=== PATIENT | female | born 1960 | race Caucasian/White ===

== ENCOUNTER 2019-12-12 19:05 | Outpatient (CLI) | payer MEDICAID | END 2019-12-12 19:06 | disposition home or self-care (01) | LOC: COV 19:05 | PROVIDERS: ATTEND Family Medicine | DX: R50.9 Fever, unspecified (principal); R06.02 Shortness of breath; M79.10 Myalgia, unspecified site; R53.83 Other fatigue; R19.7 Diarrhea, unspecified; R09.81 Nasal congestion; R11.2 Nausea with vomiting, unspecified; Z20.828 Contact with and (suspected) exposure to other viral communicable diseases ==

== ENCOUNTER 2020-01-12 07:54 | Day surgery (SDC) | payer MEDICAID ==
[2020-01-12] MEDS ORDERED: MIDAZOLAM 2 MG/2 ML VIAL IVP ONE (07:55)
[2020-01-12] MEDS ORDERED: fentaNYL 250 MCG/5 ML VIAL IVP ONE (07:55)
[2020-01-12] MEDS ORDERED: LACTATED RINGERS 1,000 ML IV ONE (08:29)
[2020-01-12 10:36] VITALS: BP 129/82
== END 2020-01-12 07:55 | disposition home or self-care (01) ==
LOC: SDS 07:54
PROVIDERS: ATTEND Internal Medicine Gastroenterology
DX: Z12.11 Encounter for screening for malignant neoplasm of colon (principal); Z98.84 Bariatric surgery status
CPT/HCPCS: 45378; J3010; J7120

== ENCOUNTER 2020-02-17 12:50 | Outpatient (CLI) | payer MEDICAID | END 2020-02-17 23:59 | LOC: LAB.R 12:50 | PROVIDERS: ATTEND Physician Assistant | DX: N30.00 Acute cystitis without hematuria (principal) | CPT/HCPCS: 87077; 87086; 87181 ==

== ENCOUNTER 2020-02-26 07:00 | Outpatient (CLI) | payer MEDICAID ==
--- NOTE | 2020-02-26 18:03 | XRAY Report ---
PROCEDURE: Finger(s) LT INDICATIONS: LEFT MIDDLE FINGER PAIN TECHNIQUE: AP hand, 3 views of the third finger(s) acquired. COMPARISON: None FINDINGS: Bones: No fractures or dislocations, but there is a mild degree of interphalangeal degenerative oste oarthritis. No erosive arthritis or prior trauma is found.. No suspicious bony lesions. Soft tissues: No suspicious soft tissue calcifications. 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 Reviewed by: Joon Jarquin MD on 02/26/2020 6:01 PM PDT Approved by: Joon Jarquin MD on 02/26/2020 6:01 PM PDT Station ID: [id number]
== END 2020-02-26 23:59 | disposition home or self-care (01) ==
LOC: DI.S 07:00
PROVIDERS: ATTEND Physician Assistant Medical
DX: M19.042 Primary osteoarthritis, left hand (principal)

== ENCOUNTER 2020-04-14 08:54 | Outpatient (CLI) | payer MEDICAID ==
--- NOTE | 2020-04-14 15:49 | XRAY Report ---
PROCEDURE: Finger(s) LT INDICATIONS: LEFT MIDDLE FINGER PAIN TECHNIQUE: AP hand, 3 views of the third finger(s) acquired. COMPARISON: X-ray fingers 02/24/2020 FINDINGS: Bones: No fractures or dislocations. No suspicious bony lesions. Unchanged appearance of scattered IP degenerative changes with small associated periarticular osteophytes. Soft tissues: No suspicious soft tissue calcifications. IMPRESSION: Stable appearance of degenerative change. No visualized acute fracture or dislocation. However, occul t injury cannot be excluded. Recommend short interval imaging follow-up in 7-10 days as clinically in dicated for additional evaluation. Reviewed by: Janette Benton MD on 04/14/2020 3:47 PM PST Approved by: Janette Benton MD on 04/14/2020 3:47 PM PST Station ID: [id number]
== END 2020-04-14 23:59 | disposition home or self-care (01) ==
LOC: DI.WCP 08:54
PROVIDERS: ATTEND Nurse Practitioner Family
DX: M19.042 Primary osteoarthritis, left hand (principal)

== ENCOUNTER 2020-05-10 15:47 | Outpatient (CLI) | payer MEDICAID ==
[2020-05-10 18:39] LABS: BASOPHILS # (AUTO) 0.1 10^3/uL (0.0-0.1); EOSINOPHILS # (AUTO) 0.2 10^3/uL (0.0-0.7); EOSINOPHILS % (AUTO) 2.9 %; HGB - HEMOGLOBIN 12.5 g/dL (12.0-16.0); LYMPHOCYTES # (AUTO) 2.9 10^3/uL (1.5-3.5); LYMPHOCYTES % (AUTO) 35.1 %; MEAN CORPUSCULAR HEMOGLOBIN 28.7 pg (27.0-31.0); MEAN CORPUSCULAR HGB CONC 31.6 g/dL (32.0-36.0); MEAN CORPUSCULAR VOLUME 90.8 fL (81.0-99.0); MEAN PLATELET VOLUME 12.1 fL (7.9-10.8); MONOCYTES # (AUTO) 0.7 10^3/uL (0.0-1.0); MONOCYTES % (AUTO) 9.1 %; NEUTROPHILS # (AUTO) 4.2 10^3/uL (1.5-6.6); NEUTROPHILS % (AUTO) 51.7 %; PLT - PLATELET COUNT 328 10^3/uL (130-450); RED BLOOD COUNT 4.36 10^6/uL (4.20-5.40); RED CELL DISTRIBUTION WIDTH 14.9 % (12.0-15.0); WHITE BLOOD COUNT 8.2 x10^3/uL (4.8-10.8)
[2020-05-10 20:51] LABS: TRICHOMONAS VAGINALIS DNA NEGATIVE (NEGATIVE)
[2020-05-11 15:18] LABS: HIV AG/AB 4TH GEN NON-REACTIVE (NON-REACTIVE)
== END 2020-05-10 15:48 | disposition home or self-care (01) ==
LOC: LAB.WCP 15:47
PROVIDERS: ATTEND Family Medicine
DX: R53.83 Other fatigue (principal); Z11.3 Encounter for screening for infections with a predominantly sexual mode of transmission
CPT/HCPCS: 36415; 81599; 85025; 85651; 86140; 86592; 87389; 87491; 87591; 87661

== ENCOUNTER 2020-05-23 08:00 | Outpatient (CLI) | payer MEDICAID ==
[2020-05-23 16:39] LABS: BASOPHILS # (AUTO) 0.1 10^3/uL (0.0-0.1); BASOPHILS % (AUTO) 1.1 %; EOSINOPHILS # (AUTO) 0.1 10^3/uL (0.0-0.7); EOSINOPHILS % (AUTO) 1.5 %; HGB - HEMOGLOBIN 13.4 g/dL (12.0-16.0); LYMPHOCYTES # (AUTO) 2.5 10^3/uL (1.5-3.5); LYMPHOCYTES % (AUTO) 31.1 %; MEAN CORPUSCULAR HEMOGLOBIN 28.1 pg (27.0-31.0); MEAN CORPUSCULAR HGB CONC 31.5 g/dL (32.0-36.0); MEAN CORPUSCULAR VOLUME 89.3 fL (81.0-99.0); MEAN PLATELET VOLUME 11.7 fL (7.9-10.8); MONOCYTES # (AUTO) 0.7 10^3/uL (0.0-1.0); MONOCYTES % (AUTO) 8.3 %; NEUTROPHILS # (AUTO) 4.6 10^3/uL (1.5-6.6); NEUTROPHILS % (AUTO) 57.7 %; PLT - PLATELET COUNT 375 10^3/uL (130-450); RED BLOOD COUNT 4.77 10^6/uL (4.20-5.40)
[2020-05-23 16:47] LABS: ALBUMIN 4.2 g/dL (3.2-5.5); ALBUMIN/GLOBULIN RATIO 1.2 (1.0-2.2); BILIRUBIN,TOTAL 0.6 mg/dL (0.2-1.0); CREATININE 0.8 mg/dL (0.4-1.0); TOTAL PROTEIN 7.6 g/dL (6.7-8.2)
== END 2020-05-23 23:59 | disposition home or self-care (01) ==
LOC: LAB.WCP 08:00
PROVIDERS: ATTEND Family Medicine
DX: R53.83 Other fatigue (principal); R42 Dizziness and giddiness; Z20.822 Contact with and (suspected) exposure to COVID-19
CPT/HCPCS: 36415; 80053; 84443; 85025; 87275; 87276

== ENCOUNTER → 2020-10-25 | Outpatient (CLI) | payer MEDICAID ==
--- NOTE | 2020-10-25 15:16 | XRAY Report ---
PROCEDURE: Hip w/Pelvis 1V LT INDICATIONS: L HIP PX TECHNIQUE: AP pelvis with lateral view(s) of the left hip(s). COMPARISON: None. FINDINGS: Bones: No fractures or dislocations. Mild symmetric appearing bilateral hip joint osteoarthritic david nges are seen. No evidence of avascular necrosis of femoral head. Prominence of left femoral head nec k junction is seen which can be seen associated with cam type femoral acetabular impingement. Pelvic ring appears intact. No suspicious bony lesions. Soft tissues: The visualized bowel gas pattern is normal. No suspicious soft tissue calcifications. IMPRESSION: 1. Symmetric appearing mild bilateral hip joint osteoarthritis. No fracture or dislocation. No eviden ce of avascular necrosis. 2. Prominence of left femoral head neck junction which can be seen associated with cam type femoral a cetabular impingement. Reviewed by: Jared Wayne MD on 10/25/2020 3:14 PM PDT Approved by: Jared Wayne MD on 10/25/2020 3:14 PM PDT Station ID: [id number]
--- NOTE | 2020-10-25 16:46 | XRAY Report ---
PROCEDURE: Lumbar Spine 2 View INDICATIONS: LUMBAR BACK PX, WITH RADICULOPATHY TECHNIQUE: 2 views of the lumbar spine were acquired. COMPARISON: None. FINDINGS: Bones: 5 ubc-kke-ujhuwge vertebrae are present. There is mild grade 1 retrolisthesis of L2 on L3 an d L3 on L4. Mild multilevel disc space narrowing and endplate osteophyte formation. Facet hypertrophy throughout the mid and lower lumbar spine. No vertebral body compression fractures. No suspicious b jan lesions. Soft tissues: Overlying bowel gas pattern is normal. No suspicious soft tissue calcifications. IMPRESSION: Multilevel degenerative disc and facet disease. No acute fracture. No osseous lesion. If symptoms and/or clinical suspicion for pathology continue, further assessment with repeat plain film s, or advanced imaging (e.g., CT, MRI, or bone scan) is recommended for further assessment. Reviewed by: Zully Keyes MD on 10/25/2020 4:45 PM PDT Approved by: Zully Keyes MD on 10/25/2020 4:45 PM PDT Station ID: [id number]
== END ==
LOC: DI.N 14:17
PROVIDERS: ATTEND Family Medicine
DX: M51.17 Intervertebral disc disorders with radiculopathy, lumbosacral region (principal); M25.552 Pain in left hip; M16.0 Bilateral primary osteoarthritis of hip

== ENCOUNTER 2020-12-02 08:00 | Outpatient (CLI) | payer MEDICAID ==
--- NOTE | 2020-12-02 16:44 | XRAY Report ---
PROCEDURE: Knee 3 View RT INDICATIONS: STRAIN OF MUSCLES OR TENDONS AT LOWER LEG LEVEL, RIGHT TECHNIQUE: 3 views of the right knee(s) were acquired. COMPARISON: None. FINDINGS: Bones: No fractures or dislocations. No suspicious bony lesions. Soft tissues: No joint effusion. No suspicious soft tissue calcifications. IMPRESSION: No evidence acute bony abnormality of the right knee. If clinical suspicion and/or symptoms persist, further assessment with repeat plain films or advanced imaging (e.g., CT, MRI, or bone scan) may be helpful for further assessment. Reviewed by: Neo Cummings MD on 12/02/2020 4:42 PM PDT Approved by: Neo Cummings MD on 12/02/2020 4:42 PM PDT Station ID: [id number]
== END 2020-12-02 08:01 | disposition home or self-care (01) ==
LOC: DI.N 08:00
PROVIDERS: ATTEND Nurse Practitioner
DX: S86.911A Strain of unspecified muscle(s) and tendon(s) at lower leg level, right leg, initial encounter (principal)

== ENCOUNTER 2021-01-24 15:19 | Emergency (ER) | payer MEDICAID ==
--- NOTE | 2021-01-24 16:00 | XRAY Report ---
PROCEDURE: Chest 1 View X-Ray INDICATIONS: Chest pain TECHNIQUE: One view of the chest was acquired. COMPARISON: None FINDINGS: Surgical changes and devices: None. Lungs and pleura: No pleural effusions or pneumothorax. Scattered calcified granulomas are incidenta lly noted. Mediastinum: Mediastinal contours appear normal. Heart size is normal. Bones and chest wall: No suspicious bony lesions. Overlying soft tissues appear unremarkable. IMPRESSION: No acute pulmonary process. Reviewed by: Janette Benton MD on 01/24/2021 3:58 PM PDT Approved by: Janette Benton MD on 01/24/2021 3:58 PM PDT Station ID: [id number]
--- NOTE | 2021-01-24 16:00 | ED Physician Documentation ---
PD HPI CHEST PAIN - Stated complaint Stated Complaint: HEAVY CHEST,HEADACHE,DIZZY - Chief complaint Chief Complaint: Cardiac - History obtained from History obtained from: Patient - Additional information Additional information: 60-year-old woman who has had 3 "heart attacks". Per her description on every angiography she always had clean coronaries and has no stents in place. She was told they were "stress-induced." So I presume Takotsubo's cardiomyopathy although she is not familiar with that term. Previous angiograms were all in [place]. She was lost to follow-up and is not on any current cardiac medications. She has had substernal chest heaviness radiating to both shoulders since 230 this morning that is not exertional. Is associated with very mild nausea and shortness of breath. Denies pedal edema or calf pain. No recent travel. She also states that she was supposed be on blood pressure medications but had trouble managing her blood pressure and would start to pass out when she was on blood pressure medicine because of erratic absorption due to previous Gerardo-en-Y gastric bypass. Review of Systems Ten Systems: 10 systems reviewed and negative Constitutional: reports: Reviewed and negative Nose: reports: Reviewed and negative Throat: reports: Reviewed and negative Cardiac: reports: Chest pain / pressure. denies: Palpitations, Pedal edema, Calf pain PD PAST MEDICAL HISTORY - Past Medical History Cardiovascular: [place] Respiratory: None Endocrine/Autoimmune: None GI: Ulcers, Pancreatitis, Other : Kidney stones HEENT: Chronic hearing loss Psych: Depression, Anxiety, Post traumatic stress disorder Musculoskeletal: Fibromyalgia, Rheumatoid arthritis Derm: None - Past Surgical History General: Cholecystectomy, Appendectomy, Gastric surgery /CHEF FRENCH: Hysterectomy, Other - Present Medications Home Medications: Ambulatory Orders Medication Instructions Recorded Confirmed Duloxetine HCl [Cymbalta] 2 tab ORAL DAILY 01/12/20 01/12/20 Estradiol [Estrace] 1 applic VG 01/12/20 Pantoprazole Sodium [Protonix] 1 tab ORAL DAILY 01/12/20 01/12/20 - Allergies Allergies/Adverse Reactions: Allergies Allergy/AdvReac Type Severity Reaction Status Date / Time codeine Allergy Unknown Verified 01/24/21 15:41 hydromorphone [From Dilaudid] Allergy Unknown Verified 01/24/21 15:41 ketorolac [From Toradol] Allergy Unknown Verified 01/24/21 15:41 latex Allergy Unknown Verified 01/24/21 15:41 NSAIDS (Non-Steroidal Allergy Unknown Verified 01/24/21 15:41 Anti-Inflamma Sulfa (Sulfonamide Allergy Unknown Verified 01/24/21 15:41 Antibiotics) PD ED PE NORMAL - Vitals Vital signs reviewed: Yes - General General: Alert and oriented X 3, No acute distress - HEENT HEENT: PERRL, EOMI - Neck Neck: Supple, no meningeal sign, No bony TTP - Cardiac Cardiac: RRR, No murmur - Respiratory Respiratory: No respiratory distress, Clear bilaterally - Abdomen Abdomen: Normal bowel sounds, Soft, Non tender - Back Back: No CVA TTP, No spinal TTP - Derm Derm: Normal color, Warm and dry - Extremities Extremities: No edema, No calf tenderness / cord - Neuro Neuro: Alert and oriented X 3, Normal speech Results - Vitals Vitals: Vital Signs - 24 hr 01/24/21 01/24/21 01/24/21 15:26 15:40 16:10 Temperature 36.5 C 36.5 C Heart Rate 71 71 62 Respiratory 16 16 12 Rate Blood Pressure 149/96 H 149/96 H 152/95 H O2 Saturation 98 98 99 Oxygen O2 Source Room air - EKG (time done) 1528 Rate: Rate (enter#) (66) Rhythm: NSR [place]: Normal Intervals: Normal MD QRS: Normal Ischemia: Normal ST segments - Labs Labs: Laboratory Tests 01/24/21 01/24/21 01/24/21 16:00 16:00 16:00 WBC 6.6 RBC 4.64 Hgb 12.7 Hct 40.6 MCV 87.5 MCH 27.4 MCHC 31.3 L RDW 15.2 H Plt Count 318 MPV 11.5 H Neut # (Auto) 3.6 Lymph # (Auto) 2.1 [place] # (Auto) 0.6 Eos # (Auto) 0.2 Baso # (Auto) 0.1 Absolute Nucleated RBC 0.00 Nucleated RBC % 0.0 Sodium 136 Potassium 3.9 Chloride 98 L Carbon Dioxide 29 Anion Gap 9.0 BUN 12 Creatinine 0.8 Estimated GFR (MDRD) 74 L Glucose 104 H Calcium 8.6 Total Bilirubin 0.9 AST 24 ALT 17 Alkaline Phosphatase 80 Troponin I High Sens 4.3 Total Protein 7.0 Albumin 3.9 Globulin 3.1 Albumin/Globulin Ratio 1.3 Lipase 30 - Rads (name of study) 1v cxr Radiology: EMP read contemporaneously (NAD) PD MEDICAL DECISION MAKING - ED course ED course: Aspirin held here as she had 2 full size aspirin this morning at home. 60-year-old woman presents with chest pain, she has been in pain for over 12 hours with negative biomarkers and EKG. In addition to previously cane coronary arteries I think this is a very good prognostic indicator. On reexamination at 4:45 PM she was actually more distressed by her moderate headache which is not the worst of her life nor sudden onset and would like something for anxiety for that. Noting that she cannot take NSAIDs due to previous Gerardo-en-Y gastric bypass. Nothing in the history or physical or chest x-ray or work-up to suggest PE or dissection. Departure - Departure Disposition: 01 Home, Self Care Clinical Impression: Chest pain Headache Qualifiers: Headache type: tension-type Headache chronicity pattern: acute headache Intractability: not intractable Qualified Code(s): G44.209 - Tension-type headache, unspecified, not intractable Condition: Good Record reviewed to determine appropriate education?: Yes Instructions: ED Chest Pain NonCardiac Comments: Return if you worsen or if the chest pain changes. Otherwise follow-up with your primary care physician and discuss stress testing and ongoing medical management of previous episodes of what sounds like Takotsubo's cardiomyopathy.
[2021-01-24 16:14] LABS: BASOPHILS # (AUTO) 0.1 10^3/uL (0.0-0.1); BASOPHILS % (AUTO) 1.1 %; EOSINOPHILS # (AUTO) 0.2 10^3/uL (0.0-0.7); EOSINOPHILS % (AUTO) 3.3 %; HCT - HEMATOCRIT 40.6 % (37.0-47.0); HGB - HEMOGLOBIN 12.7 g/dL (12.0-16.0); LYMPHOCYTES # (AUTO) 2.1 10^3/uL (1.5-3.5); LYMPHOCYTES % (AUTO) 31.8 %; MEAN CORPUSCULAR HEMOGLOBIN 27.4 pg (27.0-31.0); MEAN CORPUSCULAR HGB CONC 31.3 g/dL (32.0-36.0); MEAN CORPUSCULAR VOLUME 87.5 fL (81.0-99.0); MEAN PLATELET VOLUME 11.5 fL (7.9-10.8); MONOCYTES # (AUTO) 0.6 10^3/uL (0.0-1.0); MONOCYTES % (AUTO) 8.9 %; NEUTROPHILS # (AUTO) 3.6 10^3/uL (1.5-6.6); NEUTROPHILS % (AUTO) 54.7 %; PLT - PLATELET COUNT 318 10^3/uL (130-450); RED BLOOD COUNT 4.64 10^6/uL (4.20-5.40); RED CELL DISTRIBUTION WIDTH 15.2 % (12.0-15.0); WHITE BLOOD COUNT 6.6 x10^3/uL (4.8-10.8)
[2021-01-24 16:28] LABS: ALBUMIN 3.9 g/dL (3.2-5.5); ALBUMIN/GLOBULIN RATIO 1.3 (1.0-2.2); BILIRUBIN,TOTAL 0.9 mg/dL (0.2-1.0); CALCIUM 8.6 mg/dL (8.5-10.3); CREATININE 0.8 mg/dL (0.4-1.0); POTASSIUM 3.9 mmol/L (3.5-5.0)
[2021-01-24] MEDS ORDERED: LORazepam 2 MG/ML VIAL IVP STA (16:45)
[2021-01-24] MEDS ORDERED: ACETAMINOPHEN 325 MG TABLET PO STA (16:45)
[2021-01-24 18:16] VITALS: BP 166/73
== END 2021-01-24 17:20 | disposition home or self-care (01) ==
LOC: ED 15:19
DX: R07.89 Other chest pain (principal); G44.209 Tension-type headache, unspecified, not intractable; F41.9 Anxiety disorder, unspecified; Z88.8 Allergy status to other drugs, medicaments and biological substances; I25.2 Old myocardial infarction; Z98.84 Bariatric surgery status
CPT/HCPCS: 36415; 71045; 80053; 83690; 84484; 85025; 93005; 96374; 99284; A9270; J2060

== ENCOUNTER 2021-02-14 11:00 | Outpatient (CLI) | payer MEDICAID ==
[2021-02-14 18:18] LABS: BASOPHILS # (AUTO) 0.1 10^3/uL (0.0-0.1); BASOPHILS % (AUTO) 1.3 %; EOSINOPHILS # (AUTO) 0.3 10^3/uL (0.0-0.7); EOSINOPHILS % (AUTO) 3.9 %; HCT - HEMATOCRIT 39.1 % (37.0-47.0); HGB - HEMOGLOBIN 11.8 g/dL (12.0-16.0); LYMPHOCYTES # (AUTO) 2.2 10^3/uL (1.5-3.5); LYMPHOCYTES % (AUTO) 32.1 %; MEAN CORPUSCULAR HEMOGLOBIN 26.7 pg (27.0-31.0); MEAN CORPUSCULAR HGB CONC 30.2 g/dL (32.0-36.0); MEAN CORPUSCULAR VOLUME 88.5 fL (81.0-99.0); MEAN PLATELET VOLUME 12.3 fL (7.9-10.8); MONOCYTES # (AUTO) 0.6 10^3/uL (0.0-1.0); MONOCYTES % (AUTO) 8.9 %; NEUTROPHILS # (AUTO) 3.7 10^3/uL (1.5-6.6); NEUTROPHILS % (AUTO) 53.5 %; PLT - PLATELET COUNT 328 10^3/uL (130-450); RED BLOOD COUNT 4.42 10^6/uL (4.20-5.40); RED CELL DISTRIBUTION WIDTH 15.2 % (12.0-15.0); WHITE BLOOD COUNT 6.9 x10^3/uL (4.8-10.8)
[2021-02-14 18:48] LABS: % IRON SATURATION 11 % (20-50); ALBUMIN 3.8 g/dL (3.2-5.5); ALBUMIN/GLOBULIN RATIO 1.2 (1.0-2.2); ALKALINE PHOSPHATASE 86 IU/L (42-121); ALT ALANINE AMINOTRANSFERASE 20 IU/L (10-60); AST ASPARTATE AMINOTRANSFERASE 23 IU/L (10-42); BILIRUBIN,TOTAL 0.4 mg/dL (0.2-1.0); BUN - BLOOD UREA NITROGEN 12 mg/dL (6-20); CALCIUM 8.7 mg/dL (8.5-10.3); CARBON DIOXIDE - CO2 29 mmol/L (21-32); CHLORIDE 102 mmol/L (101-111); CHOL/HDL RATIO 2.6 (<4.4); CHOLESTEROL 169 mg/dL; CREATININE 0.9 mg/dL (0.4-1.0); GFR - MDRD 64 (>89); GLUCOSE 94 mg/dL (70-100); HDL CHOLESTEROL 66 mg/dL; IRON 55 ug/dL (28-170); LDL CHOLESTEROL,CALCULATED 91 mg/dL; LDL/HDL RATIO 1.4 (<4.4); POTASSIUM 3.9 mmol/L (3.5-5.0); SODIUM 140 mmol/L (135-145); TOTAL IRON BINDING CAPACITY 524 ug/dL (250-450); TOTAL PROTEIN 6.9 g/dL (6.7-8.2); TRANSFERRIN 374 mg/dL (192-382); TRIGLYCERIDES 58 mg/dL; VLDL CHOLESTEROL 12 mg/dL
[2021-02-14 18:52] LABS: THYROID STIMULATING HORMONE 3.04 uIU/mL (0.34-5.60)
[2021-02-14 19:00] LABS: FERRITIN 5.1 ng/mL (11.0-306.8)
[2021-02-14 19:03] LABS: FOLATE 14.42 ng/mL (5.90 - >24.8)
[2021-02-14 20:28] LABS: ESTIMATED AVERAGE GLUCOSE 117 mg/dL (70-100); HEMOGLOBIN A1c% 5.7 % (4.27-6.07)
== END 2021-02-14 11:01 | disposition home or self-care (01) ==
LOC: LAB.N 11:00
PROVIDERS: ATTEND Nurse Practitioner
DX: R53.83 Other fatigue (principal); Z98.84 Bariatric surgery status; Z13.220 Encounter for screening for lipoid disorders
CPT/HCPCS: 36415; 80053; 80061; 82306; 82607; 82728; 82746; 83036; 83540; 83721; 83970; 84425; 84443; 84466; 84590; 85025

== ENCOUNTER 2021-05-18 09:41 | Outpatient (CLI) | payer MEDICAID ==
[2021-05-18] MEDS ORDERED: iohexoL-300 100 ML VIAL ONE (09:53)
[2021-05-18] MEDS ORDERED: IOPAMIDOL-300 50 ML VIAL ONE (09:54)
[2021-05-18] MEDS: IOPAMIDOL-300 50 ML VIAL PO ONE (11:20)
[2021-05-18] MEDS: iohexoL-300 100 ML VIAL IVP ONE (11:20)
--- NOTE | 2021-05-18 16:05 | CT Report ---
PROCEDURE: Abdomen/Pelvis W INDICATIONS: MUCOCELE OF APPENDIX CONTRAST: IV CONTRAST: Isovue 300 ml: 100 PO CONTRAST: Isovue 300 ml50 TECHNIQUE: After the administration of weight appropriate dose of intravenous contrast, 5 mm thick sections acqu ired from the diaphragms to the symphysis. 5 mm thick coronal and sagittal reformats were acquired. For radiation dose reduction, the following was used: automated exposure control, adjustment of mA and/or kV according to patient size. Oral contrast was also given COMPARISON: Prior imaging not available for review. FINDINGS: Image quality: Diagnostic. ABDOMEN: Lung bases: Lung bases are clear. Heart size is normal. Solid organs: Liver and spleen are normal in size and enhancement. Gallbladder appears to be decomp ressed. Biliary system is non dilated. Pancreas enhances normally. No adrenal nodules. Kidneys de monstrate normal size and enhancement, without hydronephrosis. Bilateral ureters are normal in cours e and caliber. Peritoneum and bowel: Surgical clips are noted near the anterior, greater curvature of the stomach wi th appearance of gastric wall diverticulum anteriorly. Bowel loops demonstrate normal wall thickness and caliber. No free fluid or air. There is dilatation of the appendiceal tip measuring up to 1.3 c m in diameter. It is hypodense but measures soft tissue attenuation. No wall thickening. No significa nt periappendiceal stranding. No free fluid. No evidence for pseudomyxoma peritonei. Nodes and vessels: No retroperitoneal or mesenteric adenopathy by size criteria. Aorta and inferior vena cava are normal in size. Miscellaneous: No ventral hernias. PELVIS: Genitourinary: Bladder wall thickness is normal. Miscellaneous: No inguinal hernias or adenopathy. Bones: No suspicious bony lesions. No acute vertebral body compression fractures. IMPRESSION: 1. Focal dilatation of the appendiceal tip measuring soft tissue attenuation and approximately 1.3 cm in diameter. 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 No CT evidence to suggest rupture. No pseudomyxoma peritonei. No pathologic pelvic free fluid seen. No adenopathy. P rior imaging studies not available for review to determine stability. 2. Postsurgical changes of the anterior left upper abdomen near the greater curvature of the stomach with apparent anterior gastric wall diverticulum. Recommend correlation with prior surgical history. Consider further evaluation with direct visualization or fluoroscopy. Reviewed by: Jr Ann MD on 05/18/2021 4:03 PM PST Approved by: Jr Ann MD on 05/18/2021 4:03 PM PST Station ID: [id number]
== END 2021-05-18 09:42 | disposition home or self-care (01) ==
LOC: DI 09:41
PROVIDERS: ATTEND Nurse Practitioner
DX: K38.8 Other specified diseases of appendix (principal)
CPT/HCPCS: 74177; Q9967

== ENCOUNTER 2021-11-14 17:56 | Emergency (ER) | payer MEDICAID ==
[2021-11-14 18:20] LABS: BASOPHILS # (AUTO) 0.1 10^3/uL (0.0-0.1); BASOPHILS % (AUTO) 0.9 %; EOSINOPHILS # (AUTO) 0.2 10^3/uL (0.0-0.7); HCT - HEMATOCRIT 40.2 % (37.0-47.0); LYMPHOCYTES # (AUTO) 2.4 10^3/uL (1.5-3.5); LYMPHOCYTES % (AUTO) 29.7 %; MEAN CORPUSCULAR HEMOGLOBIN 30.2 pg (27.0-31.0); MEAN CORPUSCULAR HGB CONC 32.3 g/dL (32.0-36.0); MEAN CORPUSCULAR VOLUME 93.5 fL (81.0-99.0); MONOCYTES # (AUTO) 0.7 10^3/uL (0.0-1.0); MONOCYTES % (AUTO) 8.3 %; NEUTROPHILS # (AUTO) 4.6 10^3/uL (1.5-6.6); NEUTROPHILS % (AUTO) 57.7 %; PLT - PLATELET COUNT 327 10^3/uL (130-450); RED CELL DISTRIBUTION WIDTH 14.1 % (12.0-15.0); WHITE BLOOD COUNT 7.9 x10^3/uL (4.8-10.8)
--- NOTE | 2021-11-14 18:21 | ED Physician Documentation ---
History of Present Illness - Stated complaint Stated Complaint: CHEST PX,DIFFICULTY BREATHING - Chief complaint Chief Complaint: General - History obtained from History obtained from: Patient - History of Present Illness Timing: Today Pain level max: 6 Pain level now: 5 - Additonal information Additional information: Patient is a 61-year-old female who presents to the emergency department with chest pain. She states this has been ongoing since this morning. Worse with moving and taking a deep breath. She states that she has had "3 stress-induced heart attacks". She states her angiograms are always normal. No evidence of coronary artery disease. Does not have any stents or bypasses. The pain has been constant since around 6:30 in the morning today. She did have a recent COVID exposure. No fevers. No chills. Mild dry cough, chronic.No syncope or near syncope. She used marijuana oil prior to arrival. Review of Systems Ten Systems: 10 systems reviewed and negative Constitutional: denies: Fever, Chills Ears: denies: Ear pain Nose: denies: Rhinorrhea / runny nose, Congestion Cardiac: denies: Palpitations Respiratory: denies: Dyspnea, Wheezing GI: denies: Abdominal Pain, Nausea, Vomiting, Diarrhea Skin: denies: Rash Musculoskeletal: denies: Neck pain, Back pain Neurologic: denies: Headache PD PAST MEDICAL HISTORY - Past Medical History Cardiovascular: [place] Respiratory: None Endocrine/Autoimmune: None GI: Ulcers, Pancreatitis, Other : Kidney stones HEENT: Chronic hearing loss Psych: Depression, Anxiety, Post traumatic stress disorder Musculoskeletal: Fibromyalgia, Rheumatoid arthritis Derm: None - Past Surgical History General: Cholecystectomy, Appendectomy, Gastric surgery /ISOLATION WASHER: Hysterectomy, Other - Present Medications Home Medications: Ambulatory Orders Medication Instructions Recorded Confirmed Duloxetine HCl [Cymbalta] 2 tab ORAL DAILY 01/12/20 01/12/20 Estradiol [Estrace] 1 applic VG 01/12/20 Pantoprazole Sodium [Protonix] 1 tab ORAL DAILY 01/12/20 01/12/20 - Allergies Allergies/Adverse Reactions: Allergies Allergy/AdvReac Type Severity Reaction Status Date / Time codeine Allergy Unknown Verified 11/14/21 18:02 hydromorphone [From Dilaudid] Allergy Unknown Verified 11/14/21 18:02 ketorolac [From Toradol] Allergy Unknown Verified 11/14/21 18:02 latex Allergy Unknown Verified 11/14/21 18:02 NSAIDS (Non-Steroidal Allergy Unknown Verified 11/14/21 18:02 Anti-Inflamma Sulfa (Sulfonamide Allergy Unknown Verified 11/14/21 18:02 Antibiotics) PD ED PE NORMAL - Vitals Vital signs reviewed: Yes - General General: Alert and oriented X 3, No acute distress, Well developed/nourished - HEENT HEENT: PERRL, Moist mucous membranes - Neck Neck: Supple, no meningeal sign - Cardiac Cardiac: RRR, Strong equal pulses, Other (Tender to palpation across the anterior chest wall. Reproduces her pain.) - Respiratory Respiratory: No respiratory distress, Clear bilaterally - Abdomen Abdomen: Soft, Non tender, Non distended - Derm Derm: Warm and dry - Extremities Extremities: No edema, No calf tenderness / cord - Neuro Neuro: Alert and oriented X 3 - Psych Psych: Normal mood, Normal affect Results - Vitals Vitals: Vital Signs - 24 hr 11/14/21 11/14/21 11/14/21 18:02 18:38 19:00 Temperature 36.5 C Heart Rate 86 85 75 Respiratory 16 16 17 Rate Blood Pressure 134/93 H 124/104 H 122/78 O2 Saturation 100 98 100 11/14/21 19:57 Temperature 36.5 C Heart Rate 74 Respiratory 16 Rate Blood Pressure 120/78 O2 Saturation 100 Oxygen O2 Source Room air - EKG (time done) 1801 Rate: Rate (enter#) (86) Rhythm: NSR [place]: Normal Intervals: Normal [place] QRS: Normal Ischemia: Normal ST segments - Labs Labs: Laboratory Tests 11/14/21 11/14/21 11/14/21 18:13 18:13 18:13 WBC 7.9 RBC 4.30 Hgb 13.0 Hct 40.2 MCV 93.5 MCH 30.2 MCHC 32.3 RDW 14.1 Plt Count 327 MPV 11.0 H Neut # (Auto) 4.6 Lymph # (Auto) 2.4 [place] # (Auto) 0.7 Eos # (Auto) 0.2 Baso # (Auto) 0.1 Absolute Nucleated RBC 0.00 Nucleated RBC % 0.0 Sodium 140 Potassium 4.0 Chloride 101 Carbon Dioxide 30 Anion Gap 9.0 BUN 10 Creatinine 0.7 Estimated GFR (MDRD) 86 L Glucose 91 Calcium 8.7 Total Bilirubin 0.3 AST 24 ALT 37 Alkaline Phosphatase 102 Troponin I High Sens 5.7 Total Protein 6.4 L Albumin 3.5 Globulin 2.9 Albumin/Globulin Ratio 1.2 Lipase 35 Nasal Adenovirus (PCR) Nasal B. parapertussis DNA (PCR) Nasal Coronavir 229E PCR Nasal Coronavir HKU1 PCR Nasal Coronavir NL63 PCR Nasal Coronavir OC43 PCR Nasal Enterovir/Rhinovir PCR Nasal Influenza B PCR Nasal Influenza A PCR Nasal Parainfluen 1 PCR Nasal Parainfluen 2 PCR Nasal Parainfluen 3 PCR Nasal Parainfluen 4 PCR Nasal RSV (PCR) Nasal B.pertussis DNA PCR Nasal C.pneumoniae (PCR) Charli Human Metapneumo PCR Nasal M.pneumoniae (PCR) Nasal SARS-CoV-2 (PCR) 11/14/21 18:37 WBC RBC Hgb Hct MCV MCH MCHC RDW Plt Count MPV Neut # (Auto) Lymph # (Auto) [place] # (Auto) Eos # (Auto) Baso # (Auto) Absolute Nucleated RBC Nucleated RBC % Sodium Potassium Chloride Carbon Dioxide Anion Gap BUN Creatinine Estimated GFR (MDRD) Glucose Calcium Total Bilirubin AST ALT Alkaline Phosphatase Troponin I High Sens Total Protein Albumin Globulin Albumin/Globulin Ratio Lipase Nasal Adenovirus (PCR) NOT DETECTED Nasal B. parapertussis DNA (PCR) NOT DETECTED Nasal Coronavir 229E PCR NOT DETECTED Nasal Coronavir HKU1 PCR NOT DETECTED Nasal Coronavir NL63 PCR NOT DETECTED Nasal Coronavir OC43 PCR NOT DETECTED Nasal Enterovir/Rhinovir PCR NOT DETECTED Nasal Influenza B PCR NOT DETECTED Nasal Influenza A PCR NOT DETECTED Nasal Parainfluen 1 PCR NOT DETECTED Nasal Parainfluen 2 PCR NOT DETECTED Nasal Parainfluen 3 PCR NOT DETECTED Nasal Parainfluen 4 PCR NOT DETECTED Nasal RSV (PCR) NOT DETECTED Nasal B.pertussis DNA PCR NOT DETECTED Nasal C.pneumoniae (PCR) NOT DETECTED Charli Human Metapneumo PCR NOT DETECTED Nasal M.pneumoniae (PCR) NOT DETECTED Nasal SARS-CoV-2 (PCR) NOT DETECTED - Rads (name of study) Chest x-ray Radiology: Final report received, EMP read contemporaneously, See rad report (No acute abnormality) PD MEDICAL DECISION MAKING - ED course Complexity details: reviewed results, re-evaluated patient, considered differential (No ST elevation [place], no aortic dissection, no PE, no tension pneumothorax, no aortic aneurysm), d/w patient ED course: Patient with greater than 12 hours of chest pain, worse with movement, better with rest. Reproducible with palpation across the anterior chest wall. Does not recall any trauma. Possible costochondritis? Refuses any pain medication here or for home. Her EKG does not show any acute abnormalities. High- sensitivity troponin is negative. Chest x-ray does not show any acute abnormalities. Patient will follow up with her doctor for further care. Patient counseled regarding signs and symptoms for which I believe and urgent re-evaluation would be necessary. Patient with good understanding of and agreement to plan and is comfortable going home at this time This document was made in part using voice recognition software. While efforts are made to proofread this document, sound alike and grammatical errors may occur. Departure - Departure Disposition: Home, Self Care Clinical Impression: Chest pain Qualifiers: Chest pain type: unspecified Qualified Code(s): R07.9 - Chest pain, unspecified Condition: Good Instructions: ED Chest Pain Atypical Unkn Cause, ED Chest Pain Costochondritis Follow-Up: Donya Khoury ARNP [Primary Care Provider] - Within 1 week Comments: The cause of your symptoms is unclear today. Please follow-up with your doctor for further care. It appears that your chest pain is likely chest wall pain. This could be due to something such as costochondritis. Please follow-up with your doctor for a cardiac stress test. Return if you worsen. Your COVID test is negative today. Discharge Date/Time: 11/14/21 20:02
[2021-11-14 18:35] LABS: ALBUMIN 3.5 g/dL (3.2-5.5); ALBUMIN/GLOBULIN RATIO 1.2 (1.0-2.2); BILIRUBIN,TOTAL 0.3 mg/dL (0.2-1.0); CALCIUM 8.7 mg/dL (8.5-10.3); CREATININE 0.7 mg/dL (0.4-1.0); TOTAL PROTEIN 6.4 g/dL (6.7-8.2)
--- NOTE | 2021-11-14 19:02 | XRAY Report ---
PROCEDURE: Chest 1 View X-Ray INDICATIONS: Chest pain TECHNIQUE: One view of the chest was acquired. COMPARISON: CXR 01/24/2021. Lung bases on CT 05/18/2021. FINDINGS: Surgical changes and devices: None. Lungs and pleura: No pleural effusions or pneumothorax. No consolidation. Scattered calcified granul lawanda. Mediastinum: Mediastinal contours appear normal. Heart size is normal. Bones and chest wall: No suspicious bony lesions. Overlying soft tissues appear unremarkable. IMPRESSION: No acute cardiopulmonary abnormality. Reviewed by: Angel Rodriguez MD on 11/14/2021 7:01 PM PDT Approved by: Angel Rodriguez MD on 11/14/2021 7:01 PM PDT Station ID: [id number]
[2021-11-14 19:34] LABS: B. PARAPERTUSSIS- RESP PCR PAN NOT DETECTED; B. PERTUSSIS- RESP PCR PANEL NOT DETECTED; C. PNEUMONIAE- RESP PCR PANEL NOT DETECTED; CORONAVIRUS 229E-RESP PCR NOT DETECTED; CORONAVIRUS HKU1-RESP PCR NOT DETECTED; CORONAVIRUS NL63-RESP PCR NOT DETECTED; CORONAVIRUS OC43-RESP PCR NOT DETECTED; HUMAN METAPNEUMOVIRUS NOT DETECTED; INFLUENZA A- RESP PCR PANEL NOT DETECTED; INFLUENZA B - RESP PCR PANEL NOT DETECTED; M. PNEUMONIAE- RESP PCR PANEL NOT DETECTED; PARAINFLUENZA VIRUS 1 NOT DETECTED; PARAINFLUENZA VIRUS 2 NOT DETECTED; PARAINFLUENZA VIRUS 3 NOT DETECTED; PARAINFLUENZA VIRUS 4 NOT DETECTED; RHINOVIRUS/ENTEROVIRUS NOT DETECTED; RSV- RESP PCR PANEL NOT DETECTED; SARS-CoV-2 -RESP PCR PANEL NOT DETECTED
[2021-11-14 19:57] VITALS: BP 120/78
== END 2021-11-14 20:02 | disposition home or self-care (01) ==
LOC: ED 17:56
DX: R07.9 Chest pain, unspecified (principal)
CPT/HCPCS: 36415; 80053; 83690; 84484; 85025; 87633; 93005; 99284

== ENCOUNTER 2022-03-16 08:00 | Outpatient (CLI) | payer MEDICAID ==
[2022-03-16 20:49] LABS: INFLUENZA A- RESP PCR PANEL NOT DETECTED; INFLUENZA B - RESP PCR PANEL NOT DETECTED; RSV- RESP PCR PANEL NOT DETECTED; SARS-CoV-2 -RESP PCR PANEL NOT DETECTED
== END 2022-03-16 23:59 | disposition home or self-care (01) ==
LOC: LAB 08:00
PROVIDERS: ATTEND Nurse Practitioner
DX: J06.9 Acute upper respiratory infection, unspecified (principal); Z20.822 Contact with and (suspected) exposure to COVID-19
CPT/HCPCS: 87637

== ENCOUNTER 2022-03-23 11:05 | Emergency (ER) | payer MEDICAID ==
--- NOTE | 2022-03-23 11:53 | XRAY Report ---
PROCEDURE: Chest 1 View X-Ray INDICATIONS: Chest pain TECHNIQUE: One view of the chest was acquired. COMPARISON: 11/15/2021, 01/24/2021 FINDINGS: Surgical changes and devices: None. Lungs and pleura: No pleural effusions or pneumothorax. Calcified granulomas are seen. No focal infi ltrates are seen. Mediastinum: Mediastinal contours appear normal. Heart size is normal. Bones and chest wall: No suspicious bony lesions. Age-appropriate degenerative changes are seen. S- shaped scoliotic curvature is incidentally noted. Overlying soft tissues appear unremarkable. IMPRESSION: No acute cardiopulmonary process is seen. Additional findings: Prior granulomatous exposure. S-shaped sclerotic curvature Reviewed by: Modesto Haddad MD on 03/23/2022 10:51 AM [facility] Approved by: Modesto Haddad MD on 03/23/2022 10:51 AM [facility] Station ID: [id number]
[2022-03-23 12:03] LABS: BASOPHILS # (AUTO) 0.1 10^3/uL (0.0-0.1); BASOPHILS % (AUTO) 0.5 %; EOSINOPHILS # (AUTO) 0.2 10^3/uL (0.0-0.7); EOSINOPHILS % (AUTO) 1.5 %; HCT - HEMATOCRIT 41.5 % (37.0-47.0); HGB - HEMOGLOBIN 13.2 g/dL (12.0-16.0); LYMPHOCYTES # (AUTO) 2.4 10^3/uL (1.5-3.5); LYMPHOCYTES % (AUTO) 19.2 %; MEAN CORPUSCULAR HEMOGLOBIN 28.4 pg (27.0-31.0); MEAN CORPUSCULAR HGB CONC 31.8 g/dL (32.0-36.0); MEAN CORPUSCULAR VOLUME 89.4 fL (81.0-99.0); MEAN PLATELET VOLUME 10.1 fL (7.9-10.8); MONOCYTES % (AUTO) 7.9 %; NEUTROPHILS # (AUTO) 8.8 10^3/uL (1.5-6.6); NEUTROPHILS % (AUTO) 70.5 %; PLT - PLATELET COUNT 471 10^3/uL (130-450); RED BLOOD COUNT 4.64 10^6/uL (4.20-5.40); RED CELL DISTRIBUTION WIDTH 14.4 % (12.0-15.0); WHITE BLOOD COUNT 12.4 x10^3/uL (4.8-10.8)
[2022-03-23 12:19] LABS: ALBUMIN 3.5 g/dL (3.2-5.5); ALBUMIN/GLOBULIN RATIO 0.9 (1.0-2.2); BILIRUBIN,TOTAL 0.6 mg/dL (0.2-1.0); CREATININE 0.7 mg/dL (0.4-1.0); POTASSIUM 3.9 mmol/L (3.5-5.0); TOTAL PROTEIN 7.4 g/dL (6.7-8.2)
[2022-03-23] MEDS ORDERED: LIDOCAINE VISCOUS 2% 15 ML UDC MM STA (12:59)
[2022-03-23] MEDS ORDERED: SUCRALFATE 1 GM/10 ML UDC PO STA (12:59)
[2022-03-23] MEDS ORDERED: MAG HYDROX/AL HYDROX/SIMETH 30 ML UDC PO STA (12:59)
--- NOTE | 2022-03-23 13:16 | ED Physician Documentation ---
History of Present Illness - Stated complaint Stated Complaint: CHEST PX/SOA - Chief complaint Chief Complaint: Cardiac - History obtained from History obtained from: Patient - History of Present Illness Timing: How many weeks ago (4) Pain level max: 5 Pain level now: 4 - Additonal information Additional information: Patient is a 61-year-old female who presents to the emergency department with 4 weeks of substernal chest pain. Worse with eating and drinking. Has felt better after GI cocktails in the past. No shortness of breath. Has had some mild coughing. Has had fevers recently as well. History of a gastric bypass. She has had normal coronary angiograms in the past. No vomiting or diarrhea. No abdominal pain. No changes to her medications. The pain will occasionally radiate to her jaw. Has pain with swallowing as well. Review of Systems Constitutional: denies: Fever, Chills GI: denies: Nausea, Vomiting, Diarrhea : denies: Dysuria, Frequency, Hesitancy Skin: denies: Rash Musculoskeletal: denies: Neck pain, Back pain Neurologic: denies: Headache PD PAST MEDICAL HISTORY - Past Medical History Past Medical History: Yes Cardiovascular: [place] Respiratory: None Endocrine/Autoimmune: None GI: Ulcers, Pancreatitis, Other : Kidney stones HEENT: Chronic hearing loss Psych: Depression, Anxiety, Post traumatic stress disorder Musculoskeletal: Fibromyalgia, Rheumatoid arthritis Derm: None - Past Surgical History General: Cholecystectomy, Appendectomy, Gastric surgery /CHOIR SINGER: Hysterectomy, Other - Present Medications Home Medications: Ambulatory Orders Medication Instructions Recorded Confirmed Duloxetine HCl [Cymbalta] 2 tab ORAL DAILY 01/12/20 01/12/20 Estradiol [Estrace] 1 applic VG 01/12/20 Pantoprazole Sodium [Protonix] 1 tab ORAL DAILY 01/12/20 01/12/20 Famotidine [Pepcid] 20 mg PO BID #60 tablet 03/23/22 Sucralfate [Carafate] 1 gm PO ACHS #60 tablet 03/23/22 - Allergies Allergies/Adverse Reactions: Allergies Allergy/AdvReac Type Severity Reaction Status Date / Time codeine Allergy Unknown Verified 03/23/22 11:33 hydromorphone [From Dilaudid] Allergy Unknown Verified 03/23/22 11:33 ketorolac [From Toradol] Allergy Unknown Verified 03/23/22 11:33 latex Allergy Unknown Verified 03/23/22 11:33 NSAIDS (Non-Steroidal Allergy Unknown Verified 03/23/22 11:33 Anti-Inflamma Sulfa (Sulfonamide Allergy Unknown Verified 03/23/22 11:33 Antibiotics) PD ED PE NORMAL - Vitals Vital signs reviewed: Yes - General General: Alert and oriented X 3, No acute distress - HEENT HEENT: PERRL, Moist mucous membranes, Pharynx benign - Neck Neck: Supple, no meningeal sign - Cardiac Cardiac: RRR, No murmur, Strong equal pulses - Respiratory Respiratory: No respiratory distress, Clear bilaterally - Abdomen Abdomen: Soft, Non tender, Non distended - Back Back: No CVA TTP, No spinal TTP - Derm Derm: Warm and dry, No rash - Extremities Extremities: No edema, No calf tenderness / cord - Neuro Neuro: Alert and oriented X 3 - Psych Psych: Normal mood, Normal affect Results - Vitals Vitals: Vital Signs - 24 hr 03/23/22 03/23/22 03/23/22 11:29 11:33 12:33 Temperature 36.8 C 36.8 C Heart Rate 92 92 84 Respiratory 14 14 17 Rate Blood Pressure 135/83 H 135/83 H 139/86 H O2 Saturation 100 98 100 03/23/22 03/23/22 03/23/22 13:00 14:00 14:30 Temperature Heart Rate 77 80 84 Respiratory 22 22 20 Rate Blood Pressure 130/88 H 140/84 H 140/90 H O2 Saturation 98 96 100 03/23/22 03/23/22 14:36 15:38 Temperature 36.5 C Heart Rate 89 88 Respiratory 19 18 Rate Blood Pressure 130/80 O2 Saturation 100 Oxygen O2 Source Room air - EKG (time done) 1122 Rate: Rate (enter#) (85) Rhythm: NSR [place]: Normal Intervals: Normal MO QRS: Normal Ischemia: Normal ST segments - Labs Labs: Laboratory Tests 03/23/22 03/23/22 03/23/22 11:58 11:58 11:58 WBC 12.4 H RBC 4.64 Hgb 13.2 Hct 41.5 MCV 89.4 MCH 28.4 MCHC 31.8 L RDW 14.4 Plt Count 471 H MPV 10.1 Neut # (Auto) 8.8 H Lymph # (Auto) 2.4 [place] # (Auto) 1.0 Eos # (Auto) 0.2 Baso # (Auto) 0.1 Absolute Nucleated RBC 0.00 Nucleated RBC % 0.0 Sodium 138 Potassium 3.9 Chloride 100 L Carbon Dioxide 29 Anion Gap 9.0 BUN 7 Creatinine 0.7 Estimated GFR (MDRD) 86 L Glucose 96 Calcium 9.0 Total Bilirubin 0.6 AST 18 ALT 16 Alkaline Phosphatase 91 Troponin I High Sens 3.9 Total Protein 7.4 Albumin 3.5 Globulin 3.9 Albumin/Globulin Ratio 0.9 L Lipase 29 Nasal Adenovirus (PCR) Nasal B. parapertussis DNA (PCR) Nasal Coronavir 229E PCR Nasal Coronavir HKU1 PCR Nasal Coronavir NL63 PCR Nasal Coronavir OC43 PCR Nasal Enterovir/Rhinovir PCR Nasal Influenza B PCR Nasal Influenza A PCR Nasal Parainfluen 1 PCR Nasal Parainfluen 2 PCR Nasal Parainfluen 3 PCR Nasal Parainfluen 4 PCR Nasal RSV (PCR) Nasal B.pertussis DNA PCR Nasal C.pneumoniae (PCR) Charli Human Metapneumo PCR Nasal M.pneumoniae (PCR) Nasal SARS-CoV-2 (PCR) 03/23/22 13:05 WBC RBC Hgb Hct MCV MCH MCHC RDW Plt Count MPV Neut # (Auto) Lymph # (Auto) [place] # (Auto) Eos # (Auto) Baso # (Auto) Absolute Nucleated RBC Nucleated RBC % Sodium Potassium Chloride Carbon Dioxide Anion Gap BUN Creatinine Estimated GFR (MDRD) Glucose Calcium Total Bilirubin AST ALT Alkaline Phosphatase Troponin I High Sens Total Protein Albumin Globulin Albumin/Globulin Ratio Lipase Nasal Adenovirus (PCR) NOT DETECTED Nasal B. parapertussis DNA (PCR) NOT DETECTED Nasal Coronavir 229E PCR NOT DETECTED Nasal Coronavir HKU1 PCR NOT DETECTED Nasal Coronavir NL63 PCR NOT DETECTED Nasal Coronavir OC43 PCR NOT DETECTED Nasal Enterovir/Rhinovir PCR NOT DETECTED Nasal Influenza B PCR NOT DETECTED Nasal Influenza A PCR NOT DETECTED Nasal Parainfluen 1 PCR NOT DETECTED Nasal Parainfluen 2 PCR NOT DETECTED Nasal Parainfluen 3 PCR NOT DETECTED Nasal Parainfluen 4 PCR NOT DETECTED Nasal RSV (PCR) NOT DETECTED Nasal B.pertussis DNA PCR NOT DETECTED Nasal C.pneumoniae (PCR) NOT DETECTED Charli Human Metapneumo PCR NOT DETECTED Nasal M.pneumoniae (PCR) NOT DETECTED Nasal SARS-CoV-2 (PCR) NOT DETECTED - Rads (name of study) cxr Radiology: Final report received, EMP read contemporaneously, See rad report (No acute abnormality) PD MEDICAL DECISION MAKING - ED course Complexity details: reviewed results, re-evaluated patient, considered differential (No ST elevation [place], no aortic dissection, no PE, no tension pneumothorax, no aortic aneurysm), d/w patient ED course: Patient with chest pain that sounds more consistent with GERD. She feels better after GI cocktail. No change with albuterol. She is on a PPI at home, will add Carafate and an H2 annie. Recommend repeat endoscopy. Symptoms not consistent with PE or ACS. Patient counseled regarding signs and symptoms for which I believe and urgent re-evaluation would be necessary. Patient with good understanding of and agreement to plan and is comfortable going home at this time This document was made in part using voice recognition software. While efforts are made to proofread this document, sound alike and grammatical errors may occur. Departure - Departure Disposition: 01 Home, Self Care Clinical Impression: Atypical chest pain Condition: Good Instructions: ED Chest Pain Atypical Unkn Cause, ED GERD Follow-Up: Donya Khoury ARNP [Primary Care Provider] - Within 1 week Prescriptions: Sucralfate [Carafate] 1 gm PO ACHS #60 tablet Famotidine [Pepcid] 20 mg PO BID #60 tablet Comments: Your prescriptions were sent to [facility] in [place]. Please continue your current medications at home. Please follow-up with your doctor for further care. You may benefit from an endoscopy to evaluate your esophagus. Your doctor can refer you for this. Return if you worsen Discharge Date/Time: 03/23/22 15:15
[2022-03-23 14:04] LABS: B. PARAPERTUSSIS- RESP PCR PAN NOT DETECTED; B. PERTUSSIS- RESP PCR PANEL NOT DETECTED; C. PNEUMONIAE- RESP PCR PANEL NOT DETECTED; CORONAVIRUS 229E-RESP PCR NOT DETECTED; CORONAVIRUS HKU1-RESP PCR NOT DETECTED; CORONAVIRUS NL63-RESP PCR NOT DETECTED; CORONAVIRUS OC43-RESP PCR NOT DETECTED; HUMAN METAPNEUMOVIRUS NOT DETECTED; INFLUENZA A- RESP PCR PANEL NOT DETECTED; INFLUENZA B - RESP PCR PANEL NOT DETECTED; M. PNEUMONIAE- RESP PCR PANEL NOT DETECTED; PARAINFLUENZA VIRUS 1 NOT DETECTED; PARAINFLUENZA VIRUS 2 NOT DETECTED; PARAINFLUENZA VIRUS 3 NOT DETECTED; PARAINFLUENZA VIRUS 4 NOT DETECTED; RHINOVIRUS/ENTEROVIRUS NOT DETECTED; RSV- RESP PCR PANEL NOT DETECTED; SARS-CoV-2 -RESP PCR PANEL NOT DETECTED
[2022-03-23] MEDS ORDERED: ALBUTEROL NEB 2.5 MG/3 ML INH STA (14:15)
[2022-03-23 15:39] VITALS: BP 130/80
== END 2022-03-23 15:15 | disposition home or self-care (01) ==
LOC: ED 11:05
DX: R07.89 Other chest pain (principal); Z20.822 Contact with and (suspected) exposure to COVID-19
CPT/HCPCS: 36415; 71045; 80053; 83690; 84484; 85025; 87633; 93005; 94640; 99284; A9270

== ENCOUNTER 2022-03-28 08:00 | Outpatient (CLI) | payer MEDICAID ==
[2022-03-28 18:31] LABS: BILIRUBIN,URINE NEGATIVE (NEGATIVE); GLUCOSE, URINE (UA) NEGATIVE (NEGATIVE); KETONES,URINE (UA) NEGATIVE (NEGATIVE); LEUKOCYTE ESTERASE, URINE NEGATIVE (NEGATIVE); NITRITE,URINE NEGATIVE (NEGATIVE); OCCULT BLOOD,URINE NEGATIVE (NEGATIVE); PROTEIN,URINE NEGATIVE (NEGATIVE); UROBILINOGEN,URINE 0.2 (NORMAL) E.U./dL (NORMAL)
[2022-03-28 18:32] LABS: CLARITY,URINE CLEAR (CLEAR)
[2022-03-28 18:39] LABS: BACTERIA,URINE Rare /HPF (None Seen); RBC,URINE 0-5 /HPF (0-5); SQUAMOUS EPITHELIAL CELL,UR RARE Squamous (<= Few); WBC,URINE 0-3 /HPF (0-5)
== END 2022-03-28 23:59 | disposition home or self-care (01) ==
LOC: LAB.WCP 08:00
PROVIDERS: ATTEND Physician Assistant
DX: R50.9 Fever, unspecified (principal)
CPT/HCPCS: 81001; 87086

== ENCOUNTER 2022-05-12 12:32 | Outpatient (CLI) | payer MEDICAID ==
[2022-05-12] MEDS ORDERED: iohexoL-300 100 ML VIAL ONE (12:41)
--- NOTE | 2022-05-12 17:15 | CT Report ---
PROCEDURE: SOFT TISSUE NECK W INDICATIONS: ADENOPATHY CONTRAST: 1 TECHNIQUE: After the administration of intravenous contrast, 3.0 mm axial sections acquired from the sella to th e aortic arch. Additional oblique axial 3.0 mm sections acquired through the pharynx. 3 mm thick co gloria reformats were generated. For radiation dose reduction, the following was used: automated exp osure control, adjustment of mA and/or kV according to patient size. COMPARISON: None. FINDINGS: Image quality: Excellent. Lymph nodes: No enlarged lymph nodes seen throughout the neck. Vessels: Visualized vasculature appears patent. Neck spaces: A marker is placed upon the area of clinical concern involving the right neck, as marke d on series 3 image 85. At this site, no masses are seen. No enlarged lymph nodes are seen. The oropharynx, nasopharynx, and pharynx demonstrate no mucosal lesions. The vocal cords, false voca l cords, pyriform sinuses, epiglottis, vallecula, and tongue base all appear normal. Extramucosal sp aces appear unremarkable. Glands: The area of palpable concern is seen just inferior to the right submandibular gland. The sub mandibular glands demonstrate a normal, symmetric appearance. The parotid glands appear normal. The thyroid is within normal limits, with a subcentimeter right th yroid lesion incidentally noted. Miscellaneous: Visualized brain and orbits appear normal. Lung apices appear clear. Superficial so ft tissues appear normal. Bones: No suspicious bony lesions. Visualized sinuses and mastoids appear unremarkable. IMPRESSION: No significant abnormality can be seen at the site of palpable concern involving the right neck. The area of palpable concern may correlate to the right submandibular gland. No right submandibular g land abnormality is seen. The submandibular glands demonstrate a normal, symmetric appearance. Reviewed by: Modesto Haddad MD on 05/12/2022 4:13 PM [place] Approved by: Modesto Haddad MD on 05/12/2022 4:13 PM [facility] Station ID: [id number]
[2022-05-12] MEDS ORDERED: iohexoL-300 100 ML VIAL IVP ONE (18:33)
== END 2022-05-12 12:33 | disposition home or self-care (01) ==
LOC: DI 12:32
PROVIDERS: ATTEND Physician Assistant
DX: R59.9 Enlarged lymph nodes, unspecified (principal)
CPT/HCPCS: 70491; Q9967

== ENCOUNTER 2022-11-10 18:33 | Emergency (ER) | payer MEDICAID ==
[2022-11-10 19:17] LABS: BASOPHILS # (AUTO) 0.1 10^3/uL (0.0-0.1); BASOPHILS % (AUTO) 0.7 %; EOSINOPHILS # (AUTO) 0.4 10^3/uL (0.0-0.7); EOSINOPHILS % (AUTO) 3.3 %; HCT - HEMATOCRIT 39.4 % (37.0-47.0); HGB - HEMOGLOBIN 12.7 g/dL (12.0-16.0); LYMPHOCYTES # (AUTO) 3.1 10^3/uL (1.5-3.5); LYMPHOCYTES % (AUTO) 25.9 %; MEAN CORPUSCULAR HEMOGLOBIN 28.7 pg (27.0-31.0); MEAN CORPUSCULAR HGB CONC 32.2 g/dL (32.0-36.0); MEAN CORPUSCULAR VOLUME 89.1 fL (81.0-99.0); MONOCYTES # (AUTO) 0.9 10^3/uL (0.0-1.0); MONOCYTES % (AUTO) 7.5 %; NEUTROPHILS # (AUTO) 7.5 10^3/uL (1.5-6.6); NEUTROPHILS % (AUTO) 62.3 %; PLT - PLATELET COUNT 314 10^3/uL (130-450); RED BLOOD COUNT 4.42 10^6/uL (4.20-5.40); RED CELL DISTRIBUTION WIDTH 15.6 % (12.0-15.0)
--- NOTE | 2022-11-10 19:21 | XRAY Report ---
PROCEDURE: Chest 1 View X-Ray INDICATIONS: Chest pain TECHNIQUE: One view of the chest was acquired. COMPARISON: 03/23/2022. FINDINGS: Surgical changes and devices: None. Lungs and pleura: No pleural effusions or pneumothorax. There is no focal infiltrate. Stable nodular densities in bilateral lower lung [place] are again seen. Mediastinum: Mediastinal contours appear normal. Heart size is normal. Bones and chest wall: No suspicious bony lesions. Overlying soft tissues appear unremarkable. IMPRESSION: No acute cardiopulmonary process. Reviewed by: Jared Wayne MD on 11/10/2022 7:20 PM PDT Approved by: Jared Wayne MD on 11/10/2022 7:20 PM PDT Station ID: [id number]
--- NOTE | 2022-11-10 19:23 | ED Physician Documentation ---
PD HPI CHEST PAIN - Stated complaint Stated Complaint: R ARM PX/CHEST PX - Chief complaint Chief Complaint: Cardiac - History obtained from History obtained from: Patient - Additional information Additional information: HPI from patient. Patient c/o RUE pain radiating down the RUE and to her upper back and jaw. episodic since this afternoon without exacerbating nor ameliorating factors. She says she has had similar episodes in the past, most recently 4 months ago when she was inpatient at [facility]. She says she had a heart attack or whatever you call it, but then says she had clean veins (clarifies she means coronary arteries when I ask), and that no stents were placed. she says she has been diagnosed with takotsubo cardiomyopathy. Review of Systems Constitutional: reports: Reviewed and negative Cardiac: reports: Chest pain / pressure. denies: Palpitations, Pedal edema Respiratory: reports: Reviewed and negative GI: reports: Reviewed and negative Neurologic: reports: Headache PD PAST MEDICAL HISTORY - Past Medical History Cardiovascular: [place] Respiratory: None Endocrine/Autoimmune: None GI: Ulcers, Pancreatitis, Other : Kidney stones HEENT: Chronic hearing loss Psych: Depression, Anxiety, Post traumatic stress disorder Musculoskeletal: Fibromyalgia, Rheumatoid arthritis Derm: None - Past Surgical History General: Cholecystectomy, Appendectomy, Gastric surgery /RADIO JOURNALIST: Hysterectomy, Other - Present Medications Home Medications: Ambulatory Orders Medication Instructions Recorded Confirmed Duloxetine HCl [Cymbalta] 2 tab ORAL DAILY 01/12/20 01/12/20 Estradiol [Estrace] 1 applic VG 01/12/20 Pantoprazole Sodium [Protonix] 1 tab ORAL DAILY 01/12/20 01/12/20 Famotidine [Pepcid] 20 mg PO BID #60 tablet 03/23/22 Sucralfate [Carafate] 1 gm PO ACHS #60 tablet 03/23/22 - Allergies Allergies/Adverse Reactions: Allergies Allergy/AdvReac Type Severity Reaction Status Date / Time codeine Allergy Unknown Verified 11/10/22 18:48 hydromorphone [From Dilaudid] Allergy Unknown Verified 11/10/22 18:48 ketorolac [From Toradol] Allergy Unknown Verified 11/10/22 18:48 latex Allergy Unknown Verified 11/10/22 18:48 NSAIDS (Non-Steroidal Allergy Unknown Verified 11/10/22 18:48 Anti-Inflamma Sulfa (Sulfonamide Allergy Unknown Verified 11/10/22 18:48 Antibiotics) PD ED PE NORMAL - Vitals Vital signs reviewed: Yes - General General: Alert and oriented X 3, No acute distress, Well developed/nourished - HEENT HEENT: Moist mucous membranes - Cardiac Cardiac: RRR, No murmur, No gallop, No rub - Respiratory Respiratory: No respiratory distress, Clear bilaterally - Abdomen Abdomen: Soft, Non tender - Derm Derm: Normal color, Warm and dry - Extremities Extremities: No edema Results - Vitals Vitals: Vital Signs - 24 hr 11/10/22 11/10/22 11/10/22 18:41 19:58 22:00 Temperature 36.1 C L Heart Rate 80 64 51 L Respiratory 18 16 16 Rate Blood Pressure 108/68 109/68 132/87 H O2 Saturation 100 100 100 Oxygen O2 Source Room air - EKG (time done) No standard instances EKG releavant findings:: EKG personally interpreted by author of this note. Relevant findings are: Rate: Rate (enter#) (72) Rhythm: NSR [place]: LAD (borderline) Intervals: QRS normal QRS: Normal Ischemia: T wave inversion (V3-V5) - Labs Labs: Laboratory Tests 11/10/22 11/10/22 11/10/22 19:12 19:12 19:12 WBC 12.0 H RBC 4.42 Hgb 12.7 Hct 39.4 MCV 89.1 MCH 28.7 MCHC 32.2 RDW 15.6 H Plt Count 314 MPV 11.0 H Neut # (Auto) 7.5 H Lymph # (Auto) 3.1 [place] # (Auto) 0.9 Eos # (Auto) 0.4 Baso # (Auto) 0.1 Absolute Nucleated RBC 0.00 Nucleated RBC % 0.0 Sodium 138 Potassium 3.6 Chloride 103 Carbon Dioxide 28 Anion Gap 7.0 BUN 12 Creatinine 0.8 Estimated GFR (MDRD) 73 L Glucose 90 Calcium 8.4 L Total Bilirubin 0.4 AST 27 ALT 28 Alkaline Phosphatase 77 Troponin I High Sens < 2.3 L Total Protein 6.3 L Albumin 3.5 Globulin 2.8 Albumin/Globulin Ratio 1.3 Lipase 30 - Rads (name of study) chest xray Relevant Findings:: Prelim report reviewed, See rad report PD Medical Decision Making - ED course Complexity details: reviewed results, re-evaluated patient, considered differential, d/w patient ED course: There are no concerning nor diagnostic findings on tonight's test, including the EKG, blood tests, and chest x-ray. High-sensitivity troponin is less than 2.3. Minimal leukocytosis is noted (WBC 12). Results discussed with patient. The cause of her symptoms is not apparent at this time. Return precautions are reviewed. I advised her to follow-up with her primary care provider, next available appointment, for reevaluation. Departure - Departure Disposition: Home, Self Care Clinical Impression: Chest pain Qualifiers: Chest pain type: unspecified Qualified Code(s): R07.9 - Chest pain, unspecified Condition: Good Instructions: ED Chest Pain Atypical Unkn Cause Follow-Up: Donya Khoury ARNP [Primary Care Provider] - Comments: There were no concerning nor diagnostic findings on tonight's tests, including the blood test, chest x-ray, EKG. The cause of your symptoms is not apparent at this time. These normal test results are reassuring that a concerning/dangerous cause is unlikely, but, as we discussed, you might benefit from further testing to look further into possible causes of the symptoms. For this, you should follow-up with both your primary care provider as well as your hand or machine paster, next available appointments. Discharge Date/Time: 11/10/22 22:15
[2022-11-10 19:30] LABS: ALBUMIN 3.5 g/dL (3.2-5.5); ALBUMIN/GLOBULIN RATIO 1.3 (1.0-2.2); BILIRUBIN,TOTAL 0.4 mg/dL (0.2-1.0); CALCIUM 8.4 mg/dL (8.5-10.3); CREATININE 0.8 mg/dL (0.4-1.0); POTASSIUM 3.6 mmol/L (3.5-5.0); TOTAL PROTEIN 6.3 g/dL (6.7-8.2)
[2022-11-10 22:15] VITALS: BP 132/87
== END 2022-11-10 22:15 | disposition home or self-care (01) ==
LOC: ED 18:33
DX: R07.9 Chest pain, unspecified (principal)
CPT/HCPCS: 36415; 80053; 83690; 84484; 85025; 93005; 99283; 99284

== ENCOUNTER 2023-01-17 10:05 | Outpatient (CLI) | payer MEDICAID ==
[2023-01-17 12:00] LABS: BASOPHILS # (AUTO) 0.1 10^3/uL (0.0-0.1); EOSINOPHILS # (AUTO) 0.2 10^3/uL (0.0-0.7); EOSINOPHILS % (AUTO) 3.1 %; HCT - HEMATOCRIT 38.4 % (37.0-47.0); HGB - HEMOGLOBIN 12.2 g/dL (12.0-16.0); LYMPHOCYTES # (AUTO) 2.7 10^3/uL (1.5-3.5); LYMPHOCYTES % (AUTO) 39.3 %; MEAN CORPUSCULAR HEMOGLOBIN 29.8 pg (27.0-31.0); MEAN CORPUSCULAR HGB CONC 31.8 g/dL (32.0-36.0); MEAN CORPUSCULAR VOLUME 93.9 fL (81.0-99.0); MEAN PLATELET VOLUME 12.1 fL (7.9-10.8); MONOCYTES # (AUTO) 0.7 10^3/uL (0.0-1.0); MONOCYTES % (AUTO) 9.6 %; NEUTROPHILS # (AUTO) 3.2 10^3/uL (1.5-6.6); NEUTROPHILS % (AUTO) 46.9 %; PLT - PLATELET COUNT 269 10^3/uL (130-450); RED BLOOD COUNT 4.09 10^6/uL (4.20-5.40); RED CELL DISTRIBUTION WIDTH 14.6 % (12.0-15.0); WHITE BLOOD COUNT 6.8 x10^3/uL (4.8-10.8)
[2023-01-17 12:26] LABS: ALBUMIN 3.7 g/dL (3.2-5.5); ALBUMIN/GLOBULIN RATIO 1.5 (1.0-2.2); BILIRUBIN,TOTAL 0.3 mg/dL (0.2-1.0); CALCIUM 8.7 mg/dL (8.5-10.3); CREATININE 0.9 mg/dL (0.6-1.3); CRP - C-REACTIVE PROTEIN 0.5 mg/dL (<0.5); POTASSIUM 4.1 mmol/L (3.5-4.5); TOTAL PROTEIN 6.1 g/dL (6.4-8.9)
[2023-01-17 12:29] LABS: THYROID STIMULATING HORMONE 3.07 uIU/mL (0.34-5.60)
== END 2023-01-17 10:06 | disposition home or self-care (01) ==
LOC: LAB.N 10:05
PROVIDERS: ATTEND Nurse Practitioner
DX: R53.83 Other fatigue (principal)
CPT/HCPCS: 36415; 80053; 82607; 84439; 84443; 85025; 85651; 86140

== ENCOUNTER 2023-04-24 10:51 | Outpatient (CLI) | payer MEDICAID | END 2023-04-24 10:52 | disposition home or self-care (01) | LOC: DI 10:51 | PROVIDERS: ATTEND Nurse Practitioner | DX: I50.20 Unspecified systolic (congestive) heart failure (principal) | CPT/HCPCS: 93306 ==

== ENCOUNTER 2023-06-05 08:56 | Outpatient (CLI) | payer MEDICAID ==
--- NOTE | 2023-06-05 09:20 | CARDIAC PROCEDURE NOTE ---
Stress Test Report Service Date: 06/05/23 Service Time: 09:30 Ordering Provider: Donya Khoury ARNP Indication for Test: Assess exercise tolerance and for ischemia in a woman with prior episodes of stress cardiomyopathy who is experiencing increased chest discomfort and exertional dyspnea. 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 The first episode occurred when she was postoperative from gastric bypass surgery in 2009. At that time cardiac catheterization revealed angiographically normal coronary arteries. Danielle reports several recurrent episodes with varying stressors that include medical illness, observation of stressful events and marked weather changes, especially in the winter. She was seen by her PCP, Ms. Khoury, last summer, describing overwhelming fatigue and intermittent chest discomfort with shortness of breath. In February she was evaluated at the [facility] in [place] by Ms. Thayer. At that time an echocardiogram was reviewed from April, that suggested hypokinesis of the inferior wall. She was started on low-dose metoprolol and possibly losartan. In March 2023 following an acute change in the weather she felt more symptomatic and underwent a repeat diagnostic echocardiogram at [facility] that was reassuringly normal. There was agreement between her 2 providers that a repeat stress echocardiogram would be helpful in understanding her current status. Currently she tells me that her fatigue level is much less vexing, though it is increased if she walks greater than a mile and she may have to "pay the richey", with at least a day of lying around the house. Chest pain seems to come and go; she recalls 3 recent episodes that have been non-exertional. She has concern for chronic dizziness, which upon further questioning appears vertiginous in origin, based on her response to yoga maneuvers laying her head back and she has responded to occasional use of meclizine for severe episodes. She reports rare lightheadedness that is typically positional; if she arises too fast she becomes significantly lightheaded, with one brief syncopal episode a number of months ago. With regard to losartan, she has not been able to get it refilled for 2 months but does report that when taking it she was having severe leg burning, so she is relieved not to be taking it currently. Her understanding has been that she should not take her daily metoprolol if her heart rate is less than 60, which we discussed with revised plan as discussed below. Cardiac Risk Factors: Positive for family history of CAD in both parents (premature in her mother at age 49, father at age 60); she denies history of diabetes, hyperlipidemia (fasting lipids in 02/17 included TChol 169, LDLc 91, HDLc 66, TG 58) and tobacco smoking ever. Unclear if she truly has hypertension or not. Type of Stress Test: ETT with Echocardiography Procedure: -Exercise Treadmill Test- After signing informed consent, the patient underwent echo imaging at rest and then performed treadmill exercise using a Maury protocol. The patient exercised for 5 minutes 55 seconds and achieved a peak heart rate of 143 (90 percent predicted maximum heart rate for age), and an estimated workload of 7.1 METS. The test was terminated due to fatigue/shortness of breath. Resting heart rate: 86 Peak heart rate: 143 Normal response to exercise. Resting BP: 118/83 Peak BP: 169/93 Normal response of systolic BP to exercise, with abnormal increase in diastolic BP. Rhythm during exercise: Sinus rhythm throughout, with zero recorded PVCs. Symptoms: Dyspnea and hip pain became limiting and she denied experiencing any chest discomfort/pain or lightheadedness. EKG at rest showed normal sinus rhythm with diffuse T wave abnormalities, prominent small Q waves (likely septal) in lateral leads, abnormal precordial R/S transition with R in V2 greater than R in V3. EKG at peak stress showed no ischemia by EKG criteria. In Recovery HR and BP rapidly/normally returned to levels below resting baseline (HR 76, BP 126/77 at 5:00). Echo imaging, performed at rest and with stress, will be reported separately. Ezra Alexis MD, was present throughout this treadmill stress study and supervised it in its entirety. Summary: 1) Exercise tolerance moderately decreased for age and sex as evidenced by BRONSON of 11%. 2) Abnormal resting EKG. 3) Adequate level of exercise was achieved on this treadmill stress test. 4) Normal systolic BP response to exercise. 5) No ischemic changes by EKG criteria were seen at peak stress. 6) Echo image interpretation reveals normal left ventricular size, wall thickness and systolic function, with appropriate hyperdynamic augmentation of all segments with exercise, indicating no evidence of prior infarct or inducible ischemia. No significant valvular abnormality or elevation of estimated pulmonary artery systolic pressure seen on screening study. See separate report for more details. Conclusions and Recommendations: 1) This is a reassuring treadmill stress echocardiogram, with a normal hemodynamic response and no symptom, EKG or echocardographic evidence of inducible ischemia with exercise. 2) She reports chronic dizziness that is likely vertiginous in nature as well as rare intermittent true lightheadedness. It is her understanding that she should hold her daily metoprolol dose for heart rate less than 60. I advised her to lower the threshold for holding her metoprolol to a heart rate less than 40 or if she is having lightheadedness. She will review this with Ms. Rayrenetta in a few weeks. 3) I also recommended that she discuss her concern for an adverse reaction to losartan, and whether it is appropriate for treatment to be resumed with an antagonist of the renin-angiotensin system at this upcoming visit.
== END 2023-06-05 08:57 | disposition home or self-care (01) ==
LOC: DI 08:56
PROVIDERS: ATTEND Nurse Practitioner
DX: R07.9 Chest pain, unspecified (principal); Z82.49 Family history of ischemic heart disease and other diseases of the circulatory system
CPT/HCPCS: 93350

== ENCOUNTER 2023-07-16 13:55 | Emergency (ER) | payer MEDICAID ==
[2023-07-16 14:05] VITALS: O2SAT 100
[2023-07-16 14:32] LABS: BASOPHILS # (AUTO) 0.1 10^3/uL (0.0-0.1); BASOPHILS % (AUTO) 1.3 %; EOSINOPHILS # (AUTO) 0.2 10^3/uL (0.0-0.7); EOSINOPHILS % (AUTO) 2.2 %; HCT - HEMATOCRIT 41.4 % (37.0-47.0); HGB - HEMOGLOBIN 13.1 g/dL (12.0-16.0); LYMPHOCYTES # (AUTO) 2.6 10^3/uL (1.5-3.5); MEAN CORPUSCULAR HEMOGLOBIN 28.9 pg (27.0-31.0); MEAN CORPUSCULAR HGB CONC 31.6 g/dL (32.0-36.0); MEAN CORPUSCULAR VOLUME 91.2 fL (81.0-99.0); MEAN PLATELET VOLUME 11.4 fL (7.9-10.8); MONOCYTES # (AUTO) 0.6 10^3/uL (0.0-1.0); MONOCYTES % (AUTO) 8.2 %; NEUTROPHILS # (AUTO) 3.4 10^3/uL (1.5-6.6); NEUTROPHILS % (AUTO) 50.2 %; PLT - PLATELET COUNT 362 10^3/uL (130-450); RED BLOOD COUNT 4.54 10^6/uL (4.20-5.40); RED CELL DISTRIBUTION WIDTH 14.5 % (12.0-15.0); WHITE BLOOD COUNT 6.7 x10^3/uL (4.8-10.8)
[2023-07-16 14:43] LABS: MAGNESIUM 1.7 mg/dL (1.7-2.3)
[2023-07-16 14:49] LABS: ACETAMINOPHEN 0.4 ug/mL; CK- CREATINE KINASE 83 IU/L (30-223); ETOH - ETHANOL < 10.0 mg/dL; LIPASE 22 U/L (11-82)
[2023-07-16 14:50] LABS: BILIRUBIN,URINE NEGATIVE (NEGATIVE); GLUCOSE, URINE (UA) NEGATIVE (NEGATIVE); KETONES,URINE (UA) NEGATIVE (NEGATIVE); LEUKOCYTE ESTERASE, URINE NEGATIVE (NEGATIVE); NITRITE,URINE NEGATIVE (NEGATIVE); OCCULT BLOOD,URINE NEGATIVE (NEGATIVE); PH,URINE 7.5 PH (5.0-7.5); PROTEIN,URINE NEGATIVE (NEGATIVE); UROBILINOGEN,URINE 0.2 (NORMAL) E.U./dL (NORMAL)
[2023-07-16 14:55] LABS: CLARITY,URINE CLOUDY (CLEAR); RBC,URINE 0-5 /HPF (0-5); WBC,URINE 0-3 /HPF (0-5)
[2023-07-16 14:56] LABS: BACTERIA,URINE Many /HPF (None Seen); SQUAMOUS EPITHELIAL CELL,UR FEW Squamous (<= Few)
[2023-07-16 14:58] LABS: AMPHETAMINE SCREEN,URINE NEGATIVE (NEGATIVE); BARBITURATE SCREEN,UR NEGATIVE (NEGATIVE); BENZODIAZEPINES SCREEN, URINE NEGATIVE (NEGATIVE); COCAINE SCREEN URINE NEGATIVE (NEGATIVE); METHADONE SCREEN, URINE NEGATIVE (NEGATIVE); METHAMPHETAMINES SCREEN, URINE NEGATIVE (NEGATIVE); OPIATE SCREEN, URINE NEGATIVE (NEGATIVE); OXYCODONE SCREEN, URINE NEGATIVE (NEGATIVE); THC CANNABINOID SCREEN, URINE POSITIVE (NEGATIVE); TRICYCLIC ANTIDEPRESSANT,URINE NEGATIVE (NEGATIVE)
[2023-07-16 14:59] LABS: BUPRENORPHINE SCREEN, URINE NEGATIVE (NEGATIVE)
[2023-07-16 15:02] LABS: THYROID STIMULATING HORMONE 3.36 uIU/mL (0.34-5.60)
[2023-07-16 15:03] LABS: ALBUMIN/GLOBULIN RATIO 1.5 (1.0-2.2); ALKALINE PHOSPHATASE 72 IU/L (42-121); AST ASPARTATE AMINOTRANSFERASE 16 IU/L (10-42); BILIRUBIN,TOTAL 0.4 mg/dL (0.2-1.0); BUN - BLOOD UREA NITROGEN 7 mg/dL (6-20); CALCIUM 8.9 mg/dL (8.5-10.3); CARBON DIOXIDE - CO2 29 mmol/L (21-32); CHLORIDE 102 mmol/L (101-111); CREATININE 0.8 mg/dL (0.6-1.3); GFR - MDRD 73 (>89); GLUCOSE 89 mg/dL (74-104); POTASSIUM 4.1 mmol/L (3.5-4.5); SALICYLATE < 1.5 mg/dL; SODIUM 137 mmol/L (135-145); TOTAL PROTEIN 6.6 g/dL (6.4-8.9)
[2023-07-16 15:17] LABS: ALT ALANINE AMINOTRANSFERASE 10 IU/L (10-60)
--- NOTE | 2023-07-16 15:22 | ED Physician Documentation ---
PD HPI MHE - Stated complaint Stated Complaint: SI - Chief complaint Chief Complaint: MHE - History obtained from History obtained from: Patient - Additional information Additional information: Patient is a 63-year-old female with a history of fibromyalgia, depression presenting for evaluation of worsening suicidal thoughts in the last 5 months since she had put her service dog down. However she states her symptoms of burning really going on for at least a year. She reports having a plan of hurting yourself was taking her medications including Xanax and then walking into the ocean. She has never been hospitalized for mental health reasons. She does have a therapist whom she last saw last Sunday. She has been compliant with her medications. She denies alcohol use. She does use cannabis. Review of Systems Constitutional: denies: Fever Cardiac: denies: Chest pain / pressure Respiratory: denies: Dyspnea GI: denies: Abdominal Pain Psychiatric: reports: Depressed, Suicidal PD PAST MEDICAL HISTORY - Past Medical History Past Medical History: Yes Cardiovascular: AR Respiratory: None Endocrine/Autoimmune: None GI: Ulcers, Pancreatitis, Other : Kidney stones HEENT: Chronic hearing loss Psych: Depression, Anxiety, Post traumatic stress disorder Musculoskeletal: Fibromyalgia, Rheumatoid arthritis Derm: None - Past Surgical History Past Surgical History: Yes General: Cholecystectomy, Appendectomy, Gastric surgery /CLEATER: Hysterectomy, Other - Present Medications Home Medications: Ambulatory Orders Medication Instructions Recorded Confirmed Duloxetine HCl [Cymbalta] 120 mg ORAL DAILY 01/12/20 07/16/23 Estradiol [Estrace] 1 applic VG ONCE 01/12/20 07/16/23 Famotidine [Pepcid] 20 mg PO BID #60 tablet 03/23/22 07/16/23 ALPRAZolam [Xanax] 0.25 mg PO BID PRN 07/16/23 07/16/23 Mecobalamin [B12 Active] 1,000 mcg PO DAILY 07/16/23 07/16/23 Metoprolol Succinate [Toprol Xl] 25 mg PO DAILY 07/16/23 07/16/23 - Allergies Allergies/Adverse Reactions: Allergies Allergy/AdvReac Type Severity Reaction Status Date / Time codeine Allergy Unknown Verified 07/16/23 13:59 hydromorphone [From Dilaudid] Allergy Unknown Verified 07/16/23 13:59 ketorolac [From Toradol] Allergy Unknown Verified 07/16/23 13:59 latex Allergy Unknown Verified 07/16/23 13:59 NSAIDS (Non-Steroidal Allergy Unknown Verified 07/16/23 13:59 Anti-Inflamma Sulfa (Sulfonamide Allergy Unknown Verified 07/16/23 13:59 Antibiotics) trazodone Allergy Unknown Verified 07/16/23 13:59 - Social History Does the pt smoke?: No Smoking Status: Never smoker PD ED PE NORMAL - General General: Alert and oriented X 3, No acute distress, Well developed/nourished - HEENT HEENT: Atraumatic, Moist mucous membranes, Pharynx benign - Neck Neck: Supple, no meningeal sign - Cardiac Cardiac: RRR, Strong equal pulses - Respiratory Respiratory: No respiratory distress, Clear bilaterally - Abdomen Abdomen: Soft, Non tender - Derm Derm: Warm and dry - Neuro Neuro: Alert and oriented X 3, No motor deficit, Normal speech - Psych Psych: Other (Soft-spoken, depressed) Results - Vitals Vitals: Vital Signs - 24 hr 07/16/23 14:01 Temperature 36.5 C Heart Rate 69 Respiratory 16 Rate Blood Pressure 135/78 H O2 Saturation 100 Oxygen O2 Source Room air - Labs Labs: Laboratory Tests 07/16/23 07/16/23 07/16/23 14:18 14:26 14:26 WBC 6.7 RBC 4.54 Hgb 13.1 Hct 41.4 MCV 91.2 MCH 28.9 MCHC 31.6 L RDW 14.5 Plt Count 362 MPV 11.4 H Neut # (Auto) 3.4 Lymph # (Auto) 2.6 Gaines # (Auto) 0.6 Eos # (Auto) 0.2 Baso # (Auto) 0.1 Absolute Nucleated RBC 0.00 Nucleated RBC % 0.0 Sodium 137 Potassium 4.1 Chloride 102 Carbon Dioxide 29 Anion Gap 6.0 BUN 7 Creatinine 0.8 Estimated GFR (MDRD) 73 L Glucose 89 Calcium 8.9 Magnesium 1.7 Total Bilirubin 0.4 AST 16 ALT 10 Alkaline Phosphatase 72 Total Creatine Kinase 83 Total Protein 6.6 Albumin 4.0 Globulin 2.6 Albumin/Globulin Ratio 1.5 Lipase 22 TSH 3.36 Urine Color YELLOW Urine Clarity CLOUDY Urine pH 7.5 Ur Specific [place] <=1.005 Urine Protein NEGATIVE Urine Glucose (UA) NEGATIVE Urine Ketones NEGATIVE Urine Occult Blood NEGATIVE Urine Nitrite NEGATIVE Urine Bilirubin NEGATIVE Urine Urobilinogen 0.2 (NORMAL) Ur Leukocyte Esterase NEGATIVE Urine RBC 0-5 Urine WBC 0-3 Ur Squamous Epith Cells FEW Squamous Urine Bacteria Many H Ur Microscopic Review INDICATED Urine Culture Comments INDICATED Salicylates < 1.5 Urine Opiates Screen NEGATIVE Ur Buprenorphine Scrn NEGATIVE Ur Oxycodone Screen NEGATIVE Urine Methadone Screen NEGATIVE Acetaminophen 0.4 Ur Barbiturates Screen NEGATIVE Ur Tricyclics Screen NEGATIVE Ur Phencyclidine Scrn NEGATIVE Ur Amphetamine Screen NEGATIVE U Methamphetamines Scrn NEGATIVE U Benzodiazepines Scrn NEGATIVE Urine Cocaine Screen NEGATIVE U Cannabinoids Screen POSITIVE H Ur Drug Screen Comment CUTOFF CONC BELOW: Ethyl Alcohol < 10.0 SARS-CoV-2 (PCR) 07/16/23 17:14 WBC RBC Hgb Hct MCV MCH MCHC RDW Plt Count MPV Neut # (Auto) Lymph # (Auto) Gaines # (Auto) Eos # (Auto) Baso # (Auto) Absolute Nucleated RBC Nucleated RBC % Sodium Potassium Chloride Carbon Dioxide Anion Gap BUN Creatinine Estimated GFR (MDRD) Glucose Calcium Magnesium Total Bilirubin AST ALT Alkaline Phosphatase Total Creatine Kinase Total Protein Albumin Globulin Albumin/Globulin Ratio Lipase TSH Urine Color Urine Clarity Urine pH Ur Specific [place] Urine Protein Urine Glucose (UA) Urine Ketones Urine Occult Blood Urine Nitrite Urine Bilirubin Urine Urobilinogen Ur Leukocyte Esterase Urine RBC Urine WBC Ur Squamous Epith Cells Urine Bacteria Ur Microscopic Review Urine Culture Comments Salicylates Urine Opiates Screen Ur Buprenorphine Scrn Ur Oxycodone Screen Urine Methadone Screen Acetaminophen Ur Barbiturates Screen Ur Tricyclics Screen Ur Phencyclidine Scrn Ur Amphetamine Screen U Methamphetamines Scrn U Benzodiazepines Scrn Urine Cocaine Screen U Cannabinoids Screen Ur Drug Screen Comment Ethyl Alcohol SARS-CoV-2 (PCR) NOT DETECTED PD Medical Decision Making - ED course Complexity details: reviewed results, re-evaluated patient, d/w patient ED course: Patient is a 63-year-old female with depression and worsening thoughts of suicide. Mental health screening labs were obtained and reviewed without significant findings. She has many bacteria on her urine analysis but is asymptomatic thus recommendations are not to treat. She has been medically cleared. She has been seen by telepsychiatry and recommended for inpatient treatment. She is voluntary. Will resume her home medications including Cymbalta and as needed Xanax.Telepsychiatry is working on placement.Patient to be signed out at shift change pending placement. Departure - Departure Clinical Impression: Depression, Suicidal ideation, Asymptomatic bacteriuria Condition: Stable Forms: PCP List
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
[2023-07-16] MEDS: ALPRAZolam 0.25 MG TABLET PO PRN (21:22)
[2023-07-16] MEDS: FAMOTIDINE 20 MG TABLET PO SCH (21:22)
--- NOTE | 2023-07-16 22:58 | ED Physician Documentation ---
ED Addendum - Addendum Addendum: 07/16/23 22:56 The patient was signed out to me at change of shift, pending final disposition after presenting with suicidal ideation. She was ultimately accepted to [facility]. I have filled out paperwork and the plan is for patient to be transferred tomorrow. The accepting provider is Mary Ann Mccullough. Final impression: 1. Depression 2. Suicidal ideation Disposition: Transfer to psychiatric inpatient facility in stable condition.
[2023-07-17 07:05] VITALS: BP 121/75
[2023-07-17] MEDS: METOPROLOL SUCCINATE 25 MG TABLET PO SCH (08:11)
[2023-07-17] MEDS: DULoxetine 60 MG CAPSULE PO SCH (08:12)
== END 2023-07-17 08:15 ==
LOC: ED 13:55
DX: F32.A Depression, unspecified (principal); R45.851 Suicidal ideations; R82.71 Bacteriuria; M79.7 Fibromyalgia; I25.2 Old myocardial infarction; Z87.11 Personal history of peptic ulcer disease; Z87.442 Personal history of urinary calculi; M06.9 Rheumatoid arthritis, unspecified; Z98.84 Bariatric surgery status; Z79.899 Other long term (current) drug therapy
CPT/HCPCS: 36415; 80053; 80143; 80179; 80306; 81001; 82077; 82550; 83690; 83735; 84443; 85025; 87086; 87635; 90834; 99285; A9270; Q3014; 81003